=== PATIENT | female | born 1975 | race Two or more races ===

== ENCOUNTER 2018-05-09 12:09 | Emergency (ER) | payer OTHER ==
--- NOTE | 2018-05-09 13:29 | EDPHY ---
H & P Stated Complaint: L upper abd/flank pain x 3-4 days-recent uti Time Seen by Provider: 05/09/18 13:00 HPI/ROS: CHIEF COMPLAINT: Left-sided abdominal and back pain HISTORY OF PRESENT ILLNESS: This is a 42-year-old female in general good health who presents with 2-3 days of left-sided abdominal and back pain. She was treated for urinary tract infection with 5 day course of antibiotics which she completed about a week ago. She has had no recurrence of her urinary symptoms. Her pain is constant she describes it as a deep aching sensation. Her pain is worse when she lies on the right side and is sometimes worse with eating. She has had some mild nausea but no vomiting. No diarrhea or constipation. She does not think that this is musculoskeletal pain. She has had no trauma or recent change in exercise regimen. She denies lower extremity weakness, numbness, and no bowel or bladder difficulties. Last menstrual period ended about 1 week ago. She does not use control. She has had a tubal ligation. She is status post section. REVIEW OF SYSTEMS: A ten system review of systems was performed and is negative with the exception of the items mentioned in the HPI. 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 She does not use tobacco products. General Appearance: Alert. Vital signs reviewed. Eyes: Pupils equal and round, no conjunctival injection, no discharge. Anicteric. ENT, Mouth: Mucous membranes are moist, no oropharyngeal erythema or edema. Neck: No lymphadenopathy, supple. Respiratory: Lungs are clear to auscultation; no wheezes, rales, or rhonchi. Cardiovascular: Regular rate and rhythm; no murmur, rub, or gallop. Gastrointestinal: Abdomen is soft and nontender, no masses or organomegaly, bowel sounds normal. Skin: Scattered mildly erythematous papular rash on the left mid and lower abdomen and also on the left mid and lower back. No obvious vesicles. Warm and dry, normal color. Back: Nontender to palpation over the thoracolumbar spine. No CVAT. Extremities: No lower extremity edema, no calf tenderness or swelling. Neurological: Alert and oriented. Moving all four extremities easily and equally. Strength is 5/5 in both lower extremities with testing of major motor groups. Sensation intact to light touch over both lower extremities. Deep tendon reflexes 2+ in both knees. Gait normal. Psychiatric: Normal affect. - Medical/Surgical History Hx Asthma: No Hx Chronic Respiratory Disease: No Hx Diabetes: No Hx Cardiac Disease: No Hx Renal Disease: No Hx Cirrhosis: No Hx Alcoholism: No Hx HIV/AIDS: No Hx Splenectomy or Spleen Trauma: No Other PMH: uti finished antbx ~05/04/18 - Social History Smoking Status: Never smoked Constitutional: Initial Vital Signs Temperature (C) 37.0 C 05/09/18 12:20 Heart Rate 89 05/09/18 12:20 Respiratory Rate 18 05/09/18 12:20 Blood Pressure 133/85 H 05/09/18 12:20 O2 Sat (%) 97 05/09/18 12:20 O2 Delivery Mode Room Air Allergies/Adverse Reactions: No Known Allergies Allergy (Unverified 05/09/18 12:18) Home Medications: Medication Instructions Recorded valACYclovir [Valtrex (*)] 1,000 mg PO TID #21 tab 05/09/18 Medical Decision Making ED Course/Re-evaluation: Abdominal and back pain in healthy 42-year-old female. On initial exam I impression was that she had shingles. She had scattered maculopapular erythematous patches on her left flank in abdomen, not crossing the midline. However she also has dermatographia and on 2nd exam there is only 1 patch remaining. She feels that her pain is internal. Laboratory studies were done, CBC and basic metabolic panel, and are normal with the exception of a slight elevation of white blood cell count 9.55. On reexamination of her abdomen she continues with some left-sided abdominal tenderness, no peritoneal signs. We discussed possible diagnoses, including diverticulitis. We also discussed whether not to proceed with imaging to assess for diverticulitis. At this point she has decided to forego imaging and to watch and wait and see how this develops. She does not have right upper quadrant tenderness and I do not suspect cholecystitis or pancreatitis. Gastritis/peptic ulcer disease is a possibility. However, most of her pain seems to be lower he and I think that these are unlikely. Urinalysis is normal. She does not have pyelonephritis or urinary tract infection. Kidney stone remains in the differential. As above, she has chosen to the watch and wait rather than to undergo CT scanning today. We discussed symptomatic treatments. She was given a prescription for valacyclovir and some information about shingles and advised to watch her skin very carefully for the eruption of rash/vesicles. Differential Diagnosis: Abdominal pain including but not limited to shingles, pancreatitis, cholecystitis, gastritis, diverticulitis, pyelonephritis, and urinary tract infection. - Data Points Laboratory Results: Laboratory Results 05/09/18 12:40 05/09/18 12:40 Departure - Departure Disposition: Home, Routine, Self-Care Clinical Impression: Abdominal pain Qualifiers: Abdominal location: left lower quadrant Qualified Code(s): R10.32 - Left lower quadrant pain Condition: Good Instructions: Abdominal Pain (ED) Additional Instructions: If you are worse in any way--fever, vomiting, diarrhea, blood in your stool, worsening pain, pain with urination--please be re-evaluated. Adult Pain & Fever Control: We recommend Acetaminophen (Tylenol) and Ibuprofen (Motrin,Advil) for pain and fever control. When fever is high or pain severe, both drugs can be used at the same time, but at different intervals. Please note the time differences. Your dose is: Acetaminophen 650mg every 4 to 6 hours Ibuprofen 400mg every 6 hours with food Note: do not take Acetaminophen with Hydrocodone (Vicodin, Lortab) or Oycodone (Percocet). These medications also contain Acetaminophen. No more than 3000mg of Acetaminophen should be taken in 24 hours (for an adult). As we discussed, this could be early shingles. Watch carefully for any signs of a rash or blisters on your left abdomen and back. I am writing you a prescription for the antiviral medication that you should take if you have shingles. Referrals: LAURA QUILES [Other] - As per Instructions Prescriptions: valACYclovir [Valtrex (*)] 1,000 mg PO TID #21 tab
[2018-05-09 13:40] LABS: PLATELET COUNT 256 10^3/uL (150-400)
[2018-05-09 14:46] VITALS: BP 131/83
== END 2018-05-09 14:44 | disposition home or self-care (01) ==
DX: R10.32 Left lower quadrant pain (principal)

== ENCOUNTER → 2018-07-27 | Outpatient (CLI) | payer OTHER | LOC: FIMAGING 10:14 | PROVIDERS: ATTEND Obstetrics & Gynecology | DX: Z12.31 Encounter for screening mammogram for malignant neoplasm of breast (principal); Z84.89 Family history of other specified conditions ==